=== PATIENT | male | born 1960 | race Caucasian/White ===

== ENCOUNTER 2018-09-20 04:59 | Emergency (ER) | payer SELFPAY ==
[~2018-09-20] VITALS: Ht 167.6 cm; Wt 107.5 kg
--- NOTE | 2018-09-20 05:02 | NUR ---
PT BIBFRIEND C/O CONSTANT CP RADIATING DOWN BILAT ARMS X 2 HOURS. DENIES SOB. PATIENT DESCRIBES TIGHTNESS/PRESSURE. 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 PT IS AAOX4, NOT IN RESPIRATORY DISTRESS, HOOKED TO INSULATION BLOWER, KEPT RESTED AND COMFORTABLE, WILL CONTINUE TO MONITOR.
--- NOTE | 2018-09-20 05:15 | NUR ---
EKG DONE BY SUBSTATION OPERATOR CONVERSION.
--- NOTE | 2018-09-20 05:19 | NUR ---
IV LINE ESTABLISHED, LABS DRAWNED AND SENT TO LAB.
[2018-09-20 05:22] LABS: BASOPHILS # (AUTO) 0.1 /CMM (0.0-0.2); BASOPHILS % (AUTO) 0.7 % (0.0-2.0); EOSINOPHILS % (AUTO) 1.9 % (0.0-6.0); HEMATOCRIT 49 % (39-51); HEMOGLOBIN 16.6 g/dL (13.5-17.5); LYMPHOCYTES # (AUTO) 2.3 /CMM (0.8-4.8); LYMPHOCYTES % (AUTO) 21.6 % (20.0-44.0); MEAN CORPUSCULAR HGB CONC 34 g/dl (31.0-36.0); MEAN CORPUSCULAR VOLUME 97 fL (80-96); MONOCYTES # (AUTO) 0.6 /CMM (0.1-1.30); NEUTROPHILS # (AUTO) 7.5 /CMM (1.8-8.9); NEUTROPHILS % (AUTO) 69.8 % (43.0-81.0); PLATELET COUNT (AUTO) 210 /CMM (150-450); WHITE BLOOD COUNT (AUTO) 10.7 K/uL (4.3-11.0)
--- NOTE | 2018-09-20 05:24 | NUR ---
CODE STEMI ACTIVATED.
--- NOTE | 2018-09-20 05:24 | NUR ---
[facility] CALLED, FACESHEET AND EKG FAXED.
[2018-09-20] MEDS ORDERED: ONDANSETRON HCL/PF 4 MG/2 ML VIAL ONE (05:26)
[2018-09-20] MEDS ORDERED: NITROGLYCERIN 0.4 MG/TAB BOTTLE ONE ×2 (05:26→05:36)
[2018-09-20] MEDS ORDERED: MORPHINE SULFATE INJ 4 MG/ML DISP.SYRIN ONE (05:26)
[2018-09-20 05:30] LABS: CALCIUM, SERUM 9.1 mg/dL (8.5-10.1); CREATININE 1.3 mg/dL (0.6-1.3); POTASSIUM 3.7 mmol/L (3.5-5.1)
[2018-09-20] MEDS ORDERED: ONDANSETRON HCL/PF 4 MG/2 ML VIAL IVP ONE (05:30)
[2018-09-20] MEDS ORDERED: NITROGLYCERIN 0.4 MG/TAB BOTTLE SL ONE (05:30)
[2018-09-20] MEDS ORDERED: MORPHINE SULFATE INJ 2 MG/ML DISP.SYRIN IV ONE (05:30)
--- NOTE | 2018-09-20 05:45 | NUR ---
[facility] CALLED, SPOKE WITH CASSIA WHO IS PAGING THE AND NO RESPONSE FROM
--- NOTE | 2018-09-20 05:50 | NUR ---
CASSIA FROM [facility] CALLED BACK, DR. DE GUZMAN 2ND EKG AND LABS FAXED BEFORE TALKING TO ER
[2018-09-20] MEDS ORDERED: IV NS 0.9% 500 ML BAG IV ONE (06:00)
--- NOTE | 2018-09-20 06:01 | NUR ---
CALLED [facility] SPOKE TO PABLITO MARTINEZ REGARDING TRANSFER, FAXED EKG AND FACESHEET TO [phone]
--- NOTE | 2018-09-20 06:02 | NUR ---
[facility] ACCEPTED PT CCT ETA 15 MINUTES PER CASSIA MARTINEZ.
--- NOTE | 2018-09-20 06:15 | NUR ---
CCT NURSE CALLED ETA 10 MIN.
--- NOTE | 2018-09-20 06:25 | NUR ---
[facility] AMBULNZ AT BEDSIDE.
[2018-09-20] MEDS ORDERED: IV NS 0.9% 1,000 ML BAG IV ONE (06:30)
--- NOTE | 2018-09-20 06:30 | NUR ---
REPORT GIVEN [facility].
[2018-09-20 06:39] VITALS: BP 137/86
== END 2018-09-20 06:46 | disposition short-term general hospital (02) ==
LOC: ER 05:02
DX: I21.3 ST elevation (STEMI) myocardial infarction of unspecified site (principal); R73.9 Hyperglycemia, unspecified; J45.909 Unspecified asthma, uncomplicated; F17.200 Nicotine dependence, unspecified, uncomplicated; Z98.890 Other specified postprocedural states; Z88.6 Allergy status to analgesic agent
CPT/HCPCS: 36415; 71045; 80048; 84484; 85025; 93005; 96374; 96375; 99291; J2270; J2405; J7040 ×2